=== PATIENT | female | born 1945 | race Caucasian/White ===

== ENCOUNTER 2016-06-08 09:03 | Emergency (ER) | payer MEDICARE, MEDICAID ==
[~2016-06-08] VITALS: Ht 157.5 cm; Wt 82.0 kg
[~2016-06-08 09:03] MED LIST: AMIT100T2 PO; BIMA2.5OS; CARB200C4 PO; DORZ210OS; GLIP10 PO; QUET300T2 PO; SITA100 PO
[2016-06-08 09:16] LABS: GLUCOSE COMMENT 1 Doctor Notified; GLUCOSE,POINT OF CARE 185 MG/DL (70-110)
[2016-06-08] MEDS ORDERED: ASPIRIN 81 MG CHEWABLE TABLET PO ONE (09:30)
[2016-06-08] MEDS ORDERED: LORazepam 1 MG TABLET PO ONE ×2 (09:30→10:30)
[2016-06-08 09:57] LABS: BASOPHILS % (AUTO) 0.1 % (0.0-2.0); EOSINOPHILS % (AUTO) 1.3 % (1.0-6.0); HEMATOCRIT 42.8 % (36-46); HEMOGLOBIN 14.6 g/dL (12.0-16.0); LYMPHOCYTES # (AUTO) 1.6 K/uL (1.0-4.8); LYMPHOCYTES % (AUTO) 20.7 % (22.0-44.0); MEAN CORPUSCULAR HEMOGLOBIN 31.1 pg (26.0-34.0); MEAN CORPUSCULAR VOLUME 91 fL (80-100); MONOCYTES # (AUTO) 0.4 K/uL (0.1-1.0); MONOCYTES % (AUTO) 4.8 % (2.0-9.0); NEUTROPHILS # (AUTO) 5.5 K/uL (1.8-7.7); NEUTROPHILS % (AUTO) 73.1 % (40.0-70.0); PLATELET COUNT (AUTO) 181 K/uL (150-450); RED BLOOD CELL COUNT(AUTO) 4.68 MIL/uL (4.00-5.20); RED CELL DISTRIBUTION WIDTH 13.5 % (11.5-14.5); WHITE BLOOD COUNT (AUTO) 7.6 K/uL (4.5-11.0)
[2016-06-08 09:58] LABS: ANION GAP 10 mmol/L (8-16); CARBON DIOXIDE 27 mmol/L (22-29); CHLORIDE 97 mmol/L (98-107); CREATININE 0.79 mg/dL (0.60-1.30); GLOMERULAR FILTR. RATE CALC > 60 mL/min (>60); POTASSIUM 3.3 mmol/L (3.5-5.1); PROTHROMBIN TIME 10.6 SEC (9.4-11.6); SODIUM SERUM 134 mmol/L (136-145); UREA NITROGEN, BLOOD 8 mg/dL (7-18)
[2016-06-08 10:04] LABS: APPEARANCE,URINE CLOUDY (CLEAR); GLUCOSE, URINE (UA) >=1000 mg/dL (NEGATIVE); KETONES,URINE NEGATIVE (NEGATIVE); LEUKOCYTE ESTERASE ,URINE SMALL (NEGATIVE); OCCULT BLOOD,URINE NEGATIVE (NEGATIVE); PROTEIN,URINE NEGATIVE (NEGATIVE)
[2016-06-08 10:08] LABS: ADD UA MICROSCOPIC YES
[2016-06-08 10:23] LABS: ALANINE AMINOTRANSFERASE 36 U/L (12-78); ALBUMIN 3.9 g/dL (3.4-5.0); ASPARTATE AMINOTRANSFERASE 22 U/L (15-37); BILIRUBIN,TOTAL 0.4 mg/dL (0.1-1.0); CREATINE KINASE MB 0.9 ng/mL (0-5); CREATINE KINASE, TOTAL 133 U/L (26-192)
[2016-06-08 10:26] LABS: RBC,URINE None Seen /HPF (0-2); SQUAMOUS EPITHELIAL CELL,UR Few /LPF (None Seen)
[2016-06-08] MEDS ORDERED: POTASSIUM CHLORIDE 20 MEQ ER TABLET PO ONE (10:30)
[2016-06-08 10:38] LABS: B-TYPE NATRIURETIC PEPTIDE 48 pg/mL (0-100)
[2016-06-08 12:18] VITALS: BP 142/71
== END 2016-06-08 12:41 | disposition home or self-care (01) ==
LOC: EMS 09:06
DX: F41.9 Anxiety disorder, unspecified (principal); F32.9 Major depressive disorder, single episode, unspecified; E11.9 Type 2 diabetes mellitus without complications; R07.9 Chest pain, unspecified
CPT/HCPCS: 82962; 87086; 93005; 99285

== ENCOUNTER 2018-06-29 20:11 | Emergency (ER) | payer MEDICARE, MEDICAID ==
[~2018-06-29] VITALS: Ht 157.5 cm; Wt 78.6 kg
[2018-06-29] MEDS ORDERED: KETOROLAC TROMETHAMINE 60 MG/2 ML VIAL IM ONE (22:30)
[2018-06-29 23:56] LABS: GLUCOSE,POINT OF CARE 260 MG/DL (70-110)
[2018-06-30 00:50] VITALS: BP 142/68
== END 2018-06-30 01:08 | disposition short-term general hospital (02) ==
LOC: EMS 20:12
DX: S22.41XA Multiple fractures of ribs, right side, initial encounter for closed fracture (principal); J93.9 Pneumothorax, unspecified; E11.9 Type 2 diabetes mellitus without complications; I10 Essential (primary) hypertension; F32.9 Major depressive disorder, single episode, unspecified; Z85.3 Personal history of malignant neoplasm of breast; W01.0XXA Fall on same level from slipping, tripping and stumbling without subsequent striking against object, initial encounter; Y93.89 Activity, other specified; Y92.89 Other specified places as the place of occurrence of the external cause; Y99.8 Other external cause status
CPT/HCPCS: 71046; 82962; 96372; 99285; J1885

== ENCOUNTER 2023-08-19 08:25 | Emergency (ER) | payer MEDICARE, OTHER ==
[~2023-08-19] VITALS: Ht 154.9 cm; Wt 45.5 kg
[~2023-08-19 08:25] MED LIST changes: -CARB200C4 PO; +CARB200C7 PO; -GLIP10 PO; +GLIP10TA10 PO
[2023-08-19 08:33] VITALS: TEMP 98
[2023-08-19] MEDS ORDERED: DUPI300S SQ (08:34)
[2023-08-19] MEDS ORDERED: SEMA0.258 SQ (08:34)
[2023-08-19] MEDS ORDERED: GABA-1181 PO (08:34)
[2023-08-19] MEDS ORDERED: IBUP-45 PO (08:34)
[2023-08-19] MEDS ORDERED: EMPA10TA3 PO (08:34)
[2023-08-19] MEDS ORDERED: PANT-31 PO (08:34)
[2023-08-19] MEDS ORDERED: CLOT45CR23 VG (08:34)
[2023-08-19] MEDS: ACETAMINOPHEN 325 MG TABLET PO ONE (09:15)
[2023-08-19 09:16] VITALS: BP 180/88; PULSE 98; RESP 18
== END 2023-08-19 10:04 | disposition home or self-care (01) ==
LOC: EMS 08:42
DX: S09.90XA Unspecified injury of head, initial encounter (principal); F32.A Depression, unspecified; E11.9 Type 2 diabetes mellitus without complications; I10 Essential (primary) hypertension; Z98.890 Other specified postprocedural states; W19.XXXA Unspecified fall, initial encounter; Y93.89 Activity, other specified; Y92.89 Other specified places as the place of occurrence of the external cause; Y99.8 Other external cause status
CPT/HCPCS: 70450; 82962; 99284